=== PATIENT | female | born 1960 ===

== ENCOUNTER → 2023-03-13 11:26 | Outpatient (BNVA) | payer OTHER, SELFPAY | PROVIDERS: PCP Internal Medicine; Referring Provider Internal Medicine; Visit Provider Physician Assistant Surgical ==

== ENCOUNTER 2024-09-27 11:12 | Outpatient (AMB) | payer OTHER, SELFPAY ==
--- NOTE | 2024-09-27 11:38 | A.SPINEOV_ITS ---
Intake Visit Reasons: Back pain Intake Note: Ms. Durant is here today c/o back pain. [employer] Landscape [employer] Required: No Allergies ASPIRN Allergy (Mild, Uncoded 03/13/23 11:50) Stomach Upset Assessment & Plan Assessment & Plan (1) Chronic SI joint pain: Code(s): M53.3 - Sacrococcygeal disorders, not elsewhere classified; G89.29 - Other chronic pain Category: Medical Plan Dear Tym, Thank you for referring Mrs Durant to our office today. She is a 64-year-old female diabetic known to Dr. Carrillo from an L4-5 fusion back in 2019. She reports doing pretty well with that surgery in terms of helping her overall back pain in her ability to walk. However, within a few years of surgery she started to notice a nagging right-sided low back pain. The pain is located over SI joint. She has been seen in your office as well as . Workup included an MRI showing stenosis above her surgery at L3-4 amongst other degenerative changes. She did undergo an L3 injection earlier this year but did not report that it helped much. She did it right before trip to [place] where she was walking a lot maybe it made her feel slightly better but did not really take away the back pain. She takes Celebrex and generally just tries to put up with it but the pain is there all day. She was seen at your office, evaluated and thought to possibly have an SI joint inflammation was sent to us for consideration of fusion. The patient reports that she has the pain all throughout the day, can be aggravated with sleeping at night in the wrong position on the right side. Aggravated with standing walking or prolonged sitting as well. PMH: She is a diabetic but her A1c has been very well controlled, history of gastric bypass, she lost 200 lb, hypothyroidism, constipation, GERD, hepatic steatosis, achalasia, adenoma of the right adrenal gland, sleep apnea, fibromyalgia, history of lumbar fusion L4-5 Social hx: She has not smoke, drink use any recreational drugs Medications: Please see the [employer] list Allergies: Aspirin Physical exam: Awake alert oriented no acute distress she is able to get up on the examining table independently she but she is uncomfortable lying flat. Positive finger [place] test. Positive GERSON testing generating pain along SI joint, positive compression test on the right side. Strength and reflexes are intact. Imaging review: She is a lumbar MRI done about a year ago at [facility] showing posterior fusion L4-5, although the radiologist reports severe stenosis at L3-4 think this is an over exaggeration, I think it is more moderate. There are some other lesser degenerative changes throughout the lumbar spine. There is a slight retrolisthesis at L2-3. Impression: 64-year-old female history of L4-[address] Carrillo in 2019 with good results presenting with right-sided low back pain about a year or more after the surgery. It does seem to localize well over the right SI joint. She has 3 positive physical exam findings. She does not have any claudicating leg pains to report so I do not think the stenosis that was reported by the radiologist is clinically relevant to her current situation. This is strictly a right-sided low back/SI joint pain. I am going to see if Dr. Van will consider doing SI joint injections. Typically the insurance companies will want to see 70-80% improvement with the injections usually they require 2 of them in order to approve surgery. If we can demonstrate positive response to the injections and with the physical exam findings, I think Dr. Carrillo would offer her SI joint fusion. I will contact Dr. Van about doing the injections. Thank you for allowing us to care for your patient. The total time spent with this visit with this patient was 45 minutes reviewing history, physical exam, lumbar imaging review, and implementation of treatment plan or further diagnostic testing Je Carrillo MD,PhD [facility] Coding Level of Care Code New Pt Level 4 (67022) Diagnoses Chronic SI joint pain M53.3; G89.29
== END 2024-09-27 12:37 | disposition home or self-care (01) ==
PROVIDERS: PCP Internal Medicine; Referring Provider Neurological Surgery; Visit Provider Physician Assistant
DX: M53.3 Sacrococcygeal disorders, not elsewhere classified (principal); G89.29 Other chronic pain
CPT/HCPCS: 99204

== ENCOUNTER → 2024-09-27 11:12 | Outpatient (BNVA) | payer OTHER, SELFPAY | PROVIDERS: PCP Internal Medicine; Visit Provider Physician Assistant | DX: M53.3 Sacrococcygeal disorders, not elsewhere classified (principal); G89.29 Other chronic pain | CPT/HCPCS: 99202 ==